=== PATIENT | female | born 1980 | race Caucasian/White ===

== ENCOUNTER 2021-09-20 17:08 | Emergency (ER) | payer OTHER, MEDICAID ==
[~2021-09-20] VITALS: Ht 152.4 cm; Wt 59.0 kg
[2021-09-20] MEDS ORDERED: NOHOMEMEDICATIONS (17:32)
[2021-09-20 19:18] VITALS: BP 99/70
== END 2021-09-20 19:19 | disposition left against medical advice (07) ==
LOC: M.ERS 17:08
DX: R10.9 Unspecified abdominal pain (principal); R50.9 Fever, unspecified; Z53.21 Procedure and treatment not carried out due to patient leaving prior to being seen by health care provider